=== PATIENT | female | born 2000 | race Hispanic/Latino ===

== ENCOUNTER 2024-11-12 18:10 | Emergency (ER) | payer OTHER ==
[~2024-11-12] VITALS: Ht 154.9 cm; Wt 56.7 kg
[2024-11-12 18:45] VITALS: PULSE 71; RESP 14; TEMP 98
[2024-11-12 19:12] VITALS: BP 106/72; PULSE 69; RESP 15; TEMP 97.9; O2SAT 98
== END 2024-11-12 19:19 | disposition home or self-care (01) ==
LOC: ER 19:00
DX: S00.83XA Contusion of other part of head, initial encounter (principal); W18.2XXA Fall in (into) shower or empty bathtub, initial encounter; Y93.E1 Activity, personal bathing and showering; Y92.89 Other specified places as the place of occurrence of the external cause; J45.909 Unspecified asthma, uncomplicated; F17.210 Nicotine dependence, cigarettes, uncomplicated
CPT/HCPCS: 99283